=== PATIENT | male | born 1995 | race Caucasian/White ===

== ENCOUNTER 2016-05-06 09:15 | Emergency (ER) | payer SELFPAY ==
[~2016-05-06] VITALS: Ht 170.2 cm; Wt 72.3 kg
[2016-05-06 09:17] VITALS: Ht 170.2 cm; Wt 72.3 kg
== END 2016-05-06 11:20 | disposition left against medical advice (07) ==
LOC: FTE 09:15
DX: Z53.21 Procedure and treatment not carried out due to patient leaving prior to being seen by health care provider (principal)